=== PATIENT | female | born 2000 | race Hispanic/Latino ===

== ENCOUNTER 2022-11-29 10:40 | Day surgery (SDC) | payer OTHER ==
[2022-11-29 12:08] VITALS: BMI 32.1
== END 2022-11-29 13:16 | disposition home or self-care (01) ==
LOC: CSHLD/OP 10:40
PROVIDERS: ATTEND Family Medicine
DX: O99.113 Other diseases of the blood and blood-forming organs and certain disorders involving the immune mechanism complicating pregnancy, third trimester (principal); M32.9 Systemic lupus erythematosus, unspecified; O99.283 Endocrine, nutritional and metabolic diseases complicating pregnancy, third trimester; E03.9 Hypothyroidism, unspecified; Z79.890 Hormone replacement therapy; Z79.899 Other long term (current) drug therapy; Z3A.36 36 weeks gestation of pregnancy
CPT/HCPCS: 99282

== ENCOUNTER 2022-12-10 18:00 | Inpatient (IN) | payer OTHER ==
[2022-12-11 00:01] VITALS: BMI 33.6
[2022-12-11] MEDS ORDERED: hydrALAZINE 20 MG/ML VIAL SLOW IVP PRN (00:33)
[2022-12-11] MEDS ORDERED: Methylergonovine 0.2 MG/ML VIAL IM PRN (00:33)
[2022-12-11] MEDS ORDERED: Diphenoxylate HCl/Atropine Tablet PO PRN (00:33)
[2022-12-11] MEDS ORDERED: Misoprostol 200 MCG TAB PR PRN (00:33)
[2022-12-11] MEDS ORDERED: Promethazine HCl 25 MG/ML VIAL IM PRN (00:33)
[2022-12-11] MEDS ORDERED: Acetaminophen 500 MG TAB PO PRN (00:33)
[2022-12-11] MEDS ORDERED: Tranexamic Acid 1,000 MG/10 ML VIAL IVP PRN (00:33)
[2022-12-11] MEDS ORDERED: Lidocaine 1% (PF) 30 ML VIAL SC PRN (00:33)
[2022-12-11] MEDS ORDERED: HYDROcodone/Acetaminophen 5/325 mg Tablet PO PRN (00:33)
[2022-12-11] MEDS ORDERED: Oxytocin 30 units/NS 500 ML 500 ML IV SCH ×3 (00:33)
[2022-12-11] MEDS ORDERED: fentaNYL 50 mcg/mL 1 mL Vial SLOW IVP PRN (00:33)
[2022-12-11] MEDS ORDERED: Ibuprofen 800 MG TAB PO PRN (00:33)
[2022-12-11] MEDS ORDERED: Carboprost 250 MCG/ML AMP IM PRN (00:33)
[2022-12-11] MEDS ORDERED: Ondansetron PF 4 MG/2 ML Vial IVP PRN (00:33)
[2022-12-11 01:14] LABS: Hematocrit 31.8 % (34.9-44.5); Mean Corpuscular HGB CONC 34.6 g/dL (32.0-36.0); Mean Corpuscular Hemoglobin 32.9 pg (27.0-33.0); Mean Corpuscular Volume 95.2 fl (81.6-98.3); Mean Platelet Volume 11.1 fl (7.4-10.4); Platelet Count 220 10x3/uL (150-450); RBC Distribution Width 13.9 % (11.5-14.5); Red Blood Cell (RBC) Count 3.34 10x6/uL (3.90-5.03); White Blood Cell (WBC) Count 5.8 10x3/uL (3.5-10.5)
[2022-12-11] MEDS: Misoprostol 100 MCG TAB VAG SCH ×4 (01:20→17:49)
[2022-12-11 01:38] LABS: ALT (SGPT) 61 U/L (8-55); AST (SGOT) 57 U/L (5-34); Albumin 3.3 g/dL (3.5-5.0); Alkaline Phosphatase 159 U/L (40-110); Anion Gap 14 mmol/L (10-20); BUN (Urea Nitrogen) 10 mg/dL (7.0-18.7); Bilirubin, Total 0.3 mg/dL (0.2-1.2); Calc. Creatinine Clearance 179 mL/min (70-130); Calcium 8.9 mg/dL (7.8-10.44); Carbon Dioxide 18 mmol/L (22-29); Chloride 109 mmol/L (98-107); Estimated GFR 129; Globulin 3.7 g/dL (2.4-3.5); Glucose 88 mg/dL (70-105); Potassium 3.7 mmol/L (3.5-5.1); Sodium 137 mmol/L (136-145)
[2022-12-11 01:57] LABS: Syphilis Antibody Nonreactive (Nonreactive)
[2022-12-11 01:58] LABS: HBSAg Index 0.32 S/CO (0-0.99); Hep B Surf Ag - L&D Non-Reactive S/CO (NonReactive)
[2022-12-11] MEDS ORDERED: Misoprostol 100 MCG TAB ONE (17:44)
[2022-12-11] MEDS: Lactated Ringer's 1,000 ML IV SCH ×2 (20:34→20:35)
[2022-12-12] MEDS ORDERED: Misoprostol 100 MCG TAB ONE (02:44)
[2022-12-12] MEDS: Lactated Ringer's 1,000 ML IV SCH (02:46)
[2022-12-12] MEDS: Misoprostol 100 MCG TAB VAG SCH (02:46)
[2022-12-12] MEDS ORDERED: fentaNYL/Ropivacaine Epidural 100 ML ONE (12:06)
[2022-12-12] MEDS ORDERED: diphenhydrAMINE 50 MG/ML VIAL IVP PRN ×2 (15:30→22:41)
[2022-12-12] MEDS ORDERED: Moisturizing Cream (Eucerin) 113 GM JAR TOP PRN ×2 (15:30→22:41)
[2022-12-12] MEDS ORDERED: Promethazine HCl 25 MG/ML VIAL IM PRN ×2 (15:30→22:41)
[2022-12-12] MEDS ORDERED: Naloxone HCl 0.4 mg/ml Vial IVP PRN ×4 (15:30→22:41)
[2022-12-12] MEDS ORDERED: Lactated Ringer's 500 ML IV PRN (15:30)
[2022-12-12] MEDS ORDERED: Communication Order-Pharmacy FS SCH ×2 (15:30→22:45)
[2022-12-12] MEDS ORDERED: Acetaminophen 325 MG TAB PO PRN (15:30)
[2022-12-12] MEDS ORDERED: ePHEDrine Sulfate 50 MG/10 ML VIAL SLOW IVP PRN (15:30)
[2022-12-12] MEDS ORDERED: fentaNYL 2 mcg/Ropivacaine 0.2% Epidural 100 ML CADD EPIDURAL SCH (15:30)
[2022-12-12] MEDS ORDERED: Ondansetron PF 4 MG/2 ML Vial IVP PRN ×3 (15:30→22:41)
[2022-12-12] MEDS ORDERED: CEFAZOLIN 2 GM VIAL ONE (22:05)
[2022-12-12] MEDS ORDERED: Azithromycin 500 MG VIAL ONE (22:05)
[2022-12-12] MEDS ORDERED: fentaNYL 50 mcg/mL 1 mL Vial SLOW IVP PRN (22:41)
[2022-12-12] MEDS ORDERED: Meperidine HCl/PF 25 MG/ML VIAL SLOW IVP PRN (22:41)
[2022-12-12] MEDS ORDERED: Ketorolac Tromethamine 30 MG/ML VIAL IVP PRN (22:41)
[2022-12-12] MEDS ORDERED: Naloxone HCl 0.4 mg/ml Vial IV PRN (22:41)
[2022-12-12] MEDS ORDERED: Promethazine HCl 25 MG SUPP PR PRN (22:41)
[2022-12-12] MEDS ORDERED: HYDROmorphone 0.5 MG/0.5 ML SYRINGE SLOW IVP PRN (22:41)
[2022-12-12] MEDS ORDERED: Ketorolac Tromethamine 30 MG/ML VIAL IVP SCH (22:45)
[2022-12-12] MEDS ORDERED: Morphine PF 10 MG/10 ML VIAL ONE (23:03)
[2022-12-12] MEDS ORDERED: fentaNYL 50 mcg/mL 1 mL Vial ONE ×2 (23:05→23:31)
[2022-12-12] MEDS ORDERED: Misoprostol 200 MCG TAB ONE ×2 (23:09)
[2022-12-12] MEDS ORDERED: Tranexamic Acid 1,000 MG/10 ML VIAL ONE (23:39)
[2022-12-13] MEDS ORDERED: Lanolin Ointment 7 GM TUBE TOP PRN (04:47)
[2022-12-13] MEDS ORDERED: HYDROcodone/Acetaminophen 5/325 mg Tablet PO PRN (04:47)
[2022-12-13] MEDS ORDERED: Ondansetron PF 4 MG/2 ML Vial IVP PRN (04:47)
[2022-12-13] MEDS ORDERED: hydrALAZINE 20 MG/ML VIAL SLOW IVP PRN (04:47)
[2022-12-13] MEDS ORDERED: diphenhydrAMINE 25 MG CAP PO PRN (04:47)
[2022-12-13] MEDS ORDERED: Meperidine HCl/PF 25 MG/ML VIAL IM PRN (04:47)
[2022-12-13] MEDS ORDERED: Bisacodyl 10 MG SUPP PR PRN (04:47)
[2022-12-13] MEDS ORDERED: Promethazine HCl 25 MG/ML VIAL IM PRN (04:47)
[2022-12-13] MEDS ORDERED: Oxytocin 30 units/NS 500 ML 500 ML IV SCH (04:47)
[2022-12-13] MEDS ORDERED: Boostrix 0.5 ML (Tdap) VIAL (>/=7 yrs of age) IM ONE (04:47)
[2022-12-13] MEDS: Misoprostol 100 MCG TAB VAG SCH (05:06)
[2022-12-13] MEDS: Lactated Ringer's 1,000 ML IV SCH (05:08)
[2022-12-13] MEDS: Ketorolac Tromethamine 30 MG/ML VIAL IVP SCH ×3 (05:43→17:20)
[2022-12-13] MEDS ORDERED: Bupivacaine PF 0.5% 30 ML VIAL ONE (08:00)
[2022-12-13] MEDS ORDERED: Bupivacaine 0.25% HCL 30 ML VIAL ONE (08:00)
[2022-12-13] MEDS: Docusate 100 MG CAP PO SCH ×2 (08:43→20:09)
[2022-12-13] MEDS: Prenatal Vitamin 1 TAB PO SCH (08:43)
[2022-12-13] MEDS: Simethicone Chewable 80 MG TAB PO PRN (18:10)
[2022-12-13] MEDS: HYDROcodone/Acetaminophen 5/325 mg Tablet PO PRN (20:09)
[2022-12-13] MEDS: Ferrous Sulfate 325 MG TAB PO SCH (20:09)
[2022-12-14] MEDS: Simethicone Chewable 80 MG TAB PO PRN ×5 (00:31→21:02)
[2022-12-14] MEDS: Ketorolac Tromethamine 30 MG/ML VIAL IVP SCH (00:31)
[2022-12-14 04:51] LABS: Hematocrit 20.3 % (34.9-44.5); Hemoglobin 6.6 g/dL (12.0-15.5); Mean Corpuscular HGB CONC 32.5 g/dL (32.0-36.0); Mean Corpuscular Hemoglobin 32.4 pg (27.0-33.0); Mean Corpuscular Volume 99.5 fl (81.6-98.3); Mean Platelet Volume 10.8 fl (7.4-10.4); Platelet Count 187 10x3/uL (150-450); Red Blood Cell (RBC) Count 2.04 10x6/uL (3.90-5.03); White Blood Cell (WBC) Count 12.7 10x3/uL (3.5-10.5)
[2022-12-14] MEDS: Ibuprofen 800 MG TAB PO SCH ×3 (05:21→22:03)
[2022-12-14 06:05] LABS: Hematocrit 21.8 % (34.9-44.5); Hemoglobin 7.3 g/dL (12.0-15.5); Platelet Count 203 10x3/uL (150-450)
[2022-12-14] MEDS: Ferrous Sulfate 325 MG TAB PO SCH ×3 (07:59→21:02)
[2022-12-14] MEDS: Docusate 100 MG CAP PO SCH ×2 (08:35→21:02)
[2022-12-14] MEDS: Prenatal Vitamin 1 TAB PO SCH (08:35)
[2022-12-14] MEDS: HYDROcodone/Acetaminophen 5/325 mg Tablet PO PRN ×3 (12:36→21:02)
[2022-12-15] MEDS: HYDROcodone/Acetaminophen 5/325 mg Tablet PO PRN ×3 (00:53→08:43)
[2022-12-15] MEDS: Docusate 100 MG CAP PO SCH (07:53)
[2022-12-15] MEDS: Ibuprofen 800 MG TAB PO SCH (07:53)
[2022-12-15] MEDS: Ferrous Sulfate 325 MG TAB PO SCH (07:53)
[2022-12-15] MEDS: Prenatal Vitamin 1 TAB PO SCH (07:53)
[2022-12-15 08:34] VITALS: BP 107/57; TEMP 98
== END 2022-12-15 10:48 | disposition home or self-care (01) | DRG 787 ==
LOC: UNDOADMIN 23:23 → CSHLD 23:23 → CSHPP 12-13 03:35
PROVIDERS: ADMIT Family Medicine; ATTEND Family Medicine
PROC: 10D00Z1 Extraction of Products of Conception, Low, Open Approach (ICD-10-PCS; principal; 2022-12-12)
PROC: 10907ZC Drainage of Amniotic Fluid, Therapeutic from Products of Conception, Via Natural or Artificial Opening (ICD-10-PCS; 2022-12-12)
PROC: 3E0P7VZ Introduction of Hormone into Female Reproductive, Via Natural or Artificial Opening (ICD-10-PCS; 2022-12-12)
PROC: 10H07YZ Insertion of Other Device into Products of Conception, Via Natural or Artificial Opening (ICD-10-PCS; 2022-12-12)
DX: O99.892 Other specified diseases and conditions complicating childbirth (principal); O72.1 Other immediate postpartum hemorrhage; O62.1 Secondary uterine inertia; Z37.0 Single live birth; Z3A.38 38 weeks gestation of pregnancy; M32.9 Systemic lupus erythematosus, unspecified; O61.0 Failed medical induction of labor
CPT/HCPCS: 36415; 51702; 80053; 85027; 86780; 86850; 86860; 86870; 86880; 86900; 86901; 86905; 86922; 86970; 86978; 87340; J1650; J1885; J2274; J3010; J7120; S0020

== ENCOUNTER 2023-05-21 00:41 | Emergency (ER) | payer OTHER ==
[2023-05-21] MEDS ORDERED: Ondansetron PF 4 MG/2 ML Vial ONE (01:43)
[2023-05-21] MEDS ORDERED: Ketorolac Tromethamine 30 MG (1 mL) VIAL ONE (01:44)
[2023-05-21 01:53] LABS: Hemoglobin 10.3 g/dL (12.0-15.5); Mean Corpuscular HGB CONC 34.3 g/dL (32.0-36.0); Mean Corpuscular Hemoglobin 32.6 pg (27.0-33.0); Mean Corpuscular Volume 94.9 fl (81.6-98.3); Mean Platelet Volume 10.3 fl (7.4-10.4); Platelet Count 200 10x3/uL (150-450); RBC Distribution Width 13.4 % (11.5-14.5); Red Blood Cell (RBC) Count 3.16 10x6/uL (3.90-5.03); White Blood Cell (WBC) Count 13.8 10x3/uL (3.5-10.5)
[2023-05-21 01:54] LABS: MDiff Complete? YES
[2023-05-21 02:03] LABS: ALT (SGPT) 66 U/L (8-55); AST (SGOT) 44 U/L (5-34); Albumin 4.1 g/dL (3.5-5.0); Alkaline Phosphatase 80 U/L (40-110); Anion Gap 13 mmol/L (10-20); BUN (Urea Nitrogen) 11 mg/dL (7.0-18.7); Bilirubin, Total 1.3 mg/dL (0.2-1.2); Calc. Creatinine Clearance 0 mL/min (70-130); Calcium 9.2 mg/dL (7.8-10.44); Carbon Dioxide 23 mmol/L (22-29); Chloride 101 mmol/L (98-107); Estimated GFR 73; Globulin 4.8 g/dL (2.4-3.5); Glucose 134 mg/dL (70-105); Potassium 3.4 mmol/L (3.5-5.1); Protein, Total 8.9 g/dL (6.0-8.3); Sodium 134 mmol/L (136-145)
[2023-05-21 02:12] LABS: Bilirubin Neg (Negative); Blood, Urine 150 (Negative); Clarity Cloudy (Clear); Glucose, Urine (Dipstick) Normal (Negative); Ketone, Urine Negative (Negative); Leukocyte 500 (Negative); Nitrite Positive (Negative); Protein, Urine (Dipstick) 100 mg/dl (Neg-Trace); Urobilinogen Normal mg/dL (Less than 2)
[2023-05-21 02:15] LABS: Pregnancy Test - Urine (BHCG) Negative (Negative); Pregu Control Background? CLEAR/WHITE (CLR/WHITE); Pregu Control Bar Appear? YES (CONTROL BAR)
[2023-05-21 02:17] LABS: Band 10 % (5-11); Lymphocytes 18 % (21-51); Monocytes 6 % (0-10); Neutrophil 66 % (42-75)
[2023-05-21 02:20] LABS: Platelet Adequacy Comment Appears Adequate; RBC Morph Comment Within Normal Limits
[2023-05-21 02:22] LABS: Bacteria/HPF 1+ HPF (None Seen); CAUTI Indications for Culture Pelvic or flank pain; WBC/HPF Greater than 50 HPF (0-3)
[2023-05-21 02:26] LABS: Urine Culture Reflex Yes Yes
[2023-05-21] MEDS ORDERED: cefTRIAXone (ROCEPHIN) 1 GM VIAL ONE (03:13)
[2023-05-21] MEDS ORDERED: Iopamidol 300 61% 100 ML VIAL FS ONE (11:42)
== END 2023-05-21 04:00 | disposition home or self-care (01) ==
LOC: CSHERS 00:41
DX: N10 Acute pyelonephritis (principal)
CPT/HCPCS: 74177; 80053; 81001; 81025; 85025; 87077; 87086; 87186; 96374; 96375; J0696; J1885; J2405; Q9967